=== PATIENT | female | born 1990 | race Caucasian/White ===

== ENCOUNTER 2016-10-07 21:39 | Emergency (ER) | payer OTHER ==
[~2016-10-07] VITALS: Ht 172.7 cm; Wt 67.0 kg
[2016-10-07 21:50] VITALS: TEMP 36.7; Ht 172.7 cm; Wt 67.0 kg
[2016-10-07] MEDS ORDERED: AMOXICILLIN 250 MG CAP PO ONE (22:15)
--- NOTE | 2016-10-07 22:15 | EMERGENCY ROOM VISIT NOTE ---
History Report prepared by Terell: Froilan Corcoran Under the Supervision of: Dr. Al Rey D.O. First contact with patient: 22:05 Chief Complaint: BITE Stated Complaint: TICK BITE 24 WKS PREG History of Present Illness The patient is a 26 year old female who presents to the Emergency Room with complaints of an episode of a tick bite occurring within the last 24 hours. She just noticed the bite tonight, and denies any pain or vaginal bleeding. The patient is 24 weeks and this is her first . She denies having any medical problems, and does not take any regular medications. Her PCP is Dr. Carnes. Source of History: patient Onset: this evening Position: abdomen Quality: other (tick bite) Timing: other (episode) Associated Symptoms: No abdominal pain Note: The patient denies having vaginal discharge. Review of Systems See HPI for pertinent positives & negatives. A total of 6 systems reviewed and were otherwise negative. Past Medical & Surgical Medical Problems: (1) No Known Active Medical Problems Family History Diabetes mellitus Hypertension Social History Smoking Status: Never Smoker Smokeless Tobacco Use: No Alcohol Use: none Drug Use: none Marital Status: Occupation Status: employed Current/Historical Medications Scheduled Multivit/Min/Iron/Fol Ac/Pren ( Vitamin), 1 TAB PO DAILY Allergies Coded Allergies: No Known Allergies (Unverified , 10/07/16) Physical Exam Vital Signs Date Time Temp Pulse Resp B/P Pulse Ox O2 Delivery O2 Flow Rate FiO2 10/07/16 22:40 72 18 119/74 97 Room Air 10/07/16 21:50 36.7 80 16 121/77 100 Room Air Physical Exam GENERAL: Patient is awake alert in no acute distress patient is resting comfortably and showing no signs of anxiety EYES: The conjunctivae are clear. The pupils are round and reactive. EARS, NOSE, MOUTH AND THROAT: The nose is without any evidence of any deformity. Mucous membranes are moist tongue is midline NECK: The neck is nontender and supple. RESPIRATORY: Normal respiratory effort is noted there is no evidence of wheezing rhonchi or rales CARDIOVASCULAR: Regular rate and rhythm noted there no murmurs rubs or gallops normal S1 normal S2 GASTROINTESTINAL: in appearance. No tenderness to palpation. MUSCULOSKELETAL/EXTREMITIES: There is no evidence of gross deformity full range of motion is noted in the hips and shoulders SKIN: Area on right middle quadrant of abdomen where tick bite removed with small mouth part noted. Removed with 22 gauge needle. Three times antibiotic ointment applied. NEUROLOGIC: Patient is awake alert and oriented x3 strength is symmetric patellar reflexes are 2+ bilaterally Medical Decision & Procedures Medications Administered Medications (Trade) Dose Ordered Sig/Caterina Route Start Time Stop Time Status Last Admin Dose Admin Amoxicillin (Amoxil Cap) 500 mg NOW ONCE PO 10/07/16 22:15 10/07/16 22:16 DC 10/07/16 22:20 500 MG ED Course 2205: The patient was evaluated in room C7. A complete history and physical examination were performed. 2214: Ordered Amoxicillin 500 mg PO. 2219: Upon reevaluation, the patient is doing well. I discussed the results and treatment plan with the patient. She verbalized agreement of the treatment plan. The patient was discharged home. Medical Decision Differential diagnosis: Etiologies such as contact dermatitis, viral exanthem, urticaria, allergic reaction, Francis-Gerhard syndrome, toxic epidermal necrolysis, erythema multiforme, cellulitis, scabies, HSV, varicella, zoster, eczema, staph scalded skin syndrome, fungal infection, as well as others were entertained. Nursing notes reviewed. The patient is a 26-year-old female who presented to the emergency department for a tick removal. The patient tried to remove the tick herself but left mouth parts in her abdominal wall. She is currently and was treated with amoxicillin for prophylaxis. I explained to her that normally we would use doxycycline but she is at this time. The patient was encouraged to keep an eye on this area and follow-up with her primary care physician as soon as possible. She was also encouraged to return immediately if signs of Lyme disease develop such as joint aches joint swelling or very large rash at the site of the tick bite. She was also encouraged to continue to put triple antibiotic ointment to the area 2-3 times a day. Impression Primary Impression: Tick bite Scribe Attestation The scribe's documentation has been prepared under my direction and personally reviewed by me in its entirety. I confirm that the note above accurately reflects all work, treatment, procedures, and medical decision making performed by me. Departure Information Dispostion Home / Self-Care Referrals Mary Kate Gordillo D.O. (PCP) Patient Instructions ED Bite Tick Abx Tx, ED Facts Tick, [facility] Additional Instructions Continue to put triple antibiotic ointment to the area 2-3 times a day. Follow- up with your family as soon as possible. Follow-up especially if he started to develop a red area at the tick bite site the becomes very large. Problem Qualifiers Primary Impression: Tick bite Encounter type: initial encounter Qualified Codes: W57.XXXA - Bitten or stung by nonvenomous insect and other nonvenomous arthropods, initial encounter
[2016-10-07 22:40] VITALS: BP 119/74; PULSE 72; O2SAT 97
[2016-10-07] MEDS ORDERED: PRENTAB26 PO (22:44)
[2017-01-30] MEDS ORDERED: MTR600X PO (08:54)
== END 2016-10-07 23:12 | disposition home or self-care (01) ==
LOC: C.EDB 21:40 → C.EDC 23:12
DX: S30.861A Insect bite (nonvenomous) of abdominal wall, initial encounter (principal); W57.XXXA Bitten or stung by nonvenomous insect and other nonvenomous arthropods, initial encounter; Z3A.24 24 weeks gestation of pregnancy; Z83.3 Family history of diabetes mellitus; Z82.49 Family history of ischemic heart disease and other diseases of the circulatory system

== ENCOUNTER 2017-01-28 10:53 | Inpatient (IN) | payer OTHER ==
[~2017-01-28] VITALS: Ht 172.7 cm; Wt 70.5 kg
[~2017-01-28 10:53] MED LIST: PRENTAB26 PO
[2017-01-28] MEDS ORDERED: ONDANSETRON 8 MG/54 ML D5W IV PRN (12:15)
[2017-01-28] MEDS ORDERED: ONDANSETRON INJ 8 MG in DEXTROSE 5% 50ML 50 ML IV PRN (12:15)
[2017-01-28 12:22] LABS: HEMATOCRIT 46.6 % (37-47); MEAN CELL VOLUME 92.5 fL (80-100); MEAN CORPUSCULAR HEMOGLOBIN 33.9 pg (25-34); MEAN CORPUSCULAR HGB CONC 36.7 g/dl (32-36); MEAN PLATELET VOLUME 10.7 fL (7.4-10.4); PLATELET COUNT 142 K/uL (130-400); RED BLOOD COUNT 5.04 M/uL (4.2-5.4); WHITE BLOOD COUNT 15.06 K/uL (4.8-10.8)
[2017-01-28] MEDS ORDERED: ONDANSETRON INJ 2 MG/ML 2 ML VIAL ONE (12:26)
[2017-01-28] MEDS: LACTATED RINGER'S 1000ML 1,000 ML IV SCH ×3 (12:29→14:39)
[2017-01-28] MEDS ORDERED: ONDANSETRON INJ 2 MG/ML 2 ML VIAL IV PRN (12:30)
[2017-01-28 14:06] VITALS: Ht 172.7 cm; Wt 70.5 kg
[2017-01-28] MEDS ORDERED: OXYTOCIN 30 UNITS/500ML NSS IV ONE (15:33)
[2017-01-28] MEDS ORDERED: SUPERCREAM 0.870 % 15GM JAR EXT PRN (17:15)
[2017-01-28] MEDS ORDERED: DIPHTHERIA/TETANUS/PERTUSSIS 0.5 ML SYR/VIAL IM. ONE (17:15)
[2017-01-28] MEDS ORDERED: MEASLES, MUMPS & RUBELLA VIRUS VIAL SQ. ONE (17:15)
[2017-01-28] MEDS ORDERED: HYDROCORTISONE ACETATE 25 MG SUPP PR PRN (17:15)
[2017-01-28] MEDS ORDERED: OXYTOCIN 30 UNITS/500ML NSS IV PRN (17:15)
[2017-01-28] MEDS ORDERED: OXYCODONE/ACETAMINOPHEN 5-325 TAB PO PRN (17:15)
[2017-01-28] MEDS ORDERED: BENZOCAINE 20% AER SPR 82.5 GM CAN EXT PRN (17:15)
[2017-01-28] MEDS ORDERED: ACETAMINOPHEN/CODEINE 300/30MG TAB PO PRN ×2 (17:15)
[2017-01-28] MEDS ORDERED: IBUPROFEN 600 MG TAB PO PRN (17:15)
[2017-01-28] MEDS ORDERED: LANOLIN OINT EXT PRN ×2 (17:15)
[2017-01-28] MEDS ORDERED: ACETAMINOPHEN 325 MG TAB PO PRN (17:15)
--- NOTE | 2017-01-28 17:22 | Vaginal Delivery Summary ---
Vaginal Delivery Summary Delivery Note live male over intact perineum ROSA with Apgars 9/10 weight pending. Delayed cord blood clamping followed by cord blood. Placenta delivered spontaneously and intact. 1st degree tear repaired with 1% Lidocaine and 3/0 Vicryl suture. EBL 250 ml. Final sponge, needle and instrument count are correct. Mom and baby stable.
[2017-01-28] MEDS ORDERED: LACTATED RINGER'S 1000ML 1,000 ML IV SCH (18:00)
[2017-01-28 20:00] VITALS: BP 101/65; PULSE 68; TEMP 36.8; O2SAT 99
[2017-01-29 00:20] VITALS: BP 113/78; PULSE 72; TEMP 36.7; O2SAT 100
[2017-01-29 03:40] VITALS: BP 102/67; PULSE 69; TEMP 36.7; O2SAT 99
[2017-01-29 07:20] VITALS: BP 110/74; PULSE 82; TEMP 36.4
--- NOTE | 2017-01-29 07:28 | OB/GYN Progress Note ---
PRODUCTION SCHEDULER Progress Note Date of Service Jan 29, 2017. Subjective conversation w/ patient, physical exam Ambulation: ambulating normally Voiding: no voiding problems Passing Gas: Yes Diet Tolerance: Regular Diet Lochia: Moderate Feeding Type: Breast Feeding Pain: 07/15 Notes: Doing well, no concerns. Objective Vital Signs Date Time Temp Pulse Resp B/P (MAP) Pulse Ox O2 Delivery O2 Flow Rate FiO2 01/29/17 03:40 36.7 69 16 102/67 (79) 99 Room Air 01/29/17 00:20 100 Room Air 01/29/17 00:20 36.7 72 18 113/78 (90) 100 Room Air 01/28/17 20:00 36.8 68 20 101/65 (77) 99 Room Air Physical Exam General Appearance: WELL-APPEARING Respiratory/Chest: chest non-tender, lungs clear Cardiovascular: regular rate, rhythm Abdomen: normal bowel sounds, soft Fundus: Firm Extremities: normal range of motion, non-tender, no calf tenderness Laboratory Results Last 24 Hours Test 01/28/17 11:36 01/29/17 06:40 White Blood Count 15.06 K/uL Red Blood Count 5.04 M/uL Hemoglobin 17.1 g/dL Hematocrit 46.6 % Mean Corpuscular Volume 92.5 fL Mean Corpuscular Hemoglobin 33.9 pg Mean Corpuscular Hemoglobin Concent 36.7 g/dl RDW Standard Deviation 44.0 fL RDW Coefficient of Variation 13.1 % Platelet Count 142 K/uL Mean Platelet Volume 10.7 fL Assessment and Plan Post- Day Number: 1 Continue Routine Care: -Continue routine care -Anticipate d/c home tomorrow.
[2017-01-29] MEDS: FERROUS SULFATE 325 MG TAB PO SCH (08:12)
[2017-01-29] MEDS: PRENATAL VITAMIN TAB PO SCH (08:12)
[2017-01-29 11:23] VITALS: BP 94/64; PULSE 82; TEMP 36.7; O2SAT 99
[2017-01-29 15:30] VITALS: BP 109/68; PULSE 75; TEMP 36.8
[2017-01-29] MEDS ORDERED: BISACODYL 5 MG TABEC PO SCH (20:00)
[2017-01-29 23:05] VITALS: BP 104/70; PULSE 75; TEMP 36.6; O2SAT 99
[2017-01-30] MEDS ORDERED: BISACODYL 10 MG SUPP PR PRN (07:00)
[2017-01-30] MEDS: FERROUS SULFATE 325 MG TAB PO SCH (07:53)
[2017-01-30] MEDS: PRENATAL VITAMIN TAB PO SCH (07:53)
[2017-01-30 07:55] VITALS: BP 115/74; PULSE 73; TEMP 36.6
[2017-01-30] MEDS ORDERED: MTR600X PO (08:54)
--- NOTE | 2017-01-30 08:59 | Discharge Instructions ---
Discharge Instructions Date of Service Jan 30, 2017. Admission Reason for Admission: R/O Labor Discharge Discharge Diagnosis / Problem: term delivered Discharge Goals Goal(s): Routine recovery after delivery Activity Recommendations Activity Limitations: as noted below Lifting Limitations: no more than 10 pounds Exercise/Sports Limitations: until after follow-up appointment Shower/Bathe: no limitations . Instructions / Follow-Up Instructions / Follow-Up ACTIVITY RECOMMENDATIONS: * Gradual return to full activity over the next 2-3 weeks. * No lifting - nothing heavier than baby over the next 2-3 weeks. * Do not engage in vigorous exercise, sexual activity or sports until cleared by your physician. * Do not drive or operate any motorized equipment until cleared by your physician. * You may shower/bathe daily. BREAST CARE: If you are not breast feeding: * Wear a supportive bra 24 hours a day for one to two weeks. * Avoid stimulating your breasts and nipples as much as possible during the first few weeks after delivery. * When taking a shower, have the warm water hit your back, not breasts. * When your breasts feel full, apply ice packs. Usually three to four times a day helps ease the discomfort. * Take a mild pain medication (Tylenol/Motrin) when you are uncomfortable. If breast feeding: * Use breast milk to lubricate nipples. Lansinoh cream may be used for sore nipples. You do not need to remove cream prior to breast feeding. If using a different brand of cream, check the label for directions regarding removal of cream prior to nursing. * Wear a supportive bra. * If having problems with breasts or breast feeding, call a senior recruitment consultant or your health care provider. EPISIOTOMY CARE: After delivery, if you have an episiotomy (stitches), the following steps will ease discomfort and aid healing. * For the first 24 hours after delivery, place ice packs next to your episiotomy to help reduce swelling. * After the first 24 hour-period, sitz baths, either portable or in the tub, are suggested. A shower with a shower arm sprayed over the episiotomy may be comforting. * Sofia care should be done after each voiding and bowel movement. Squirt warm water from a plastic bottle over the perineum (region of the body between the anus and urinary opening) and pat dry. * Use Dermoplast to ease discomfort. Shake container. [place] directly over the episiotomy. * Place a Tucks on a clean sanitary pad next to your episiotomy. OVER THE COUNTER MEDICATION: * For discomfort or pain, you may use Acetaminophen (Tylenol), Ibuprofen (Advil ), or Naproxen (Aleve) following the package directions. * For constipation you may use Colace following the package directions. SPECIAL CARE INSTRUCTIONS: When you are discharged from the hospital, it is important for you to follow the instructions listed below: * During the first week at home, you should be able to care for yourself and your baby. In addition, the usual light household activities are encouraged. * Limit your activities to the way you feel. Do not try to clean the house or move furniture. Be sensible. * If you actively engage in sports and have done so up until the time of your delivery, you may resume these activities as soon as you feel able. This may take up to one month or even longer. Use good judgment. * Continue to take your vitamins for at least six weeks after the of your baby. * Your diet need not be limited unless you were on a special diet before your delivery. Breast-feeding mothers need around 2500 calories per day and at least 64-80 ounces of fluid per day (8 to 10 glasses). * You should eat foods from the four major food groups. Crash diets or fad diets are to be avoided. Eating lean meats, fresh fruits and vegetables, low-fat dairy products, high fiber foods and a regular exercise program, will help you get back to your pre- weight without putting your health at risk. * Constipation is sometimes a problem after delivery. Take a mild laxative as needed. If breast feeding, Milk of Magnesia is acceptable to use. You may use a suppository or Fleets enema if no episiotomy. * A daily shower or tub bath is suggested. Be sure to thoroughly and gently dry the perineum. * A bloody vaginal discharge will usually continue until around four weeks post . A small amount of bleeding may continue for as long as six weeks. Vaginal discharge changes from the bright red bleeding after delivery to pink then brownish and finally yellowish-pink before becoming white and disappearing. * Bleeding may increase with activity. Your first period may come in 4-8 weeks. If you are breast feeding, your period may be delayed even longer. * [place] (sex) can begin whenever both you and your partner feel comfortable and do not have any form of genital infection. It is recommended that you wait until after your return appointment and discuss with your physician. If you have questions, please talk to your health care practitioner. A condom should be used to prevent infection and . * Foreplay, gentle intercourse and lubrication is very important the first several times to prevent pain. A water-based lubricant such as K-Y jelly or Astroglide may be used. * Tampons may be used six weeks after delivery. * Douching should be avoided for 6 weeks after delivery. * If you have RH negative blood and your baby is RH positive, you will receive RHOGAM by injection prior to discharge. The nurse will give you a card to keep with you that has the date and place that you received RHOGAM after delivery. * During your care, you had a Rubella screen done to check for the presence of rubella antibodies in your blood. If your test was negative, you will receive a Rubella vaccine prior to discharge. This vaccine may cause a fever, soreness at the injection site and flu-like symptoms. If these symptoms persist, notify your health care practitioner. is not advised for three months after a Rubella vaccine. There is a higher chance of having a baby with defects if conceived within three months of getting the vaccine. * If you were discharged 24 hours from delivery or before 48 hours: Visiting nurses will come to your home 48 hours after discharge to assess you and your baby. The visiting nurse will meet with you while you are in the hospital to arrange a time and get directions to your home. * Verbalizes understanding of car seat law as reviewed with patient nursing. * Car Seat hand-out given and reviewed with patient by nursing. * Shaken baby information reviewed with patient by nursing. Call you doctor if: * Heavy bleeding (saturating several pads an hour) or passing clots the size of your fist. * A fever >101 degrees F (38.3 degrees C) on two occasions four hours apart and/or chills. * Unusual pain in the pelvic or vaginal areas. * "Baby Blues" lasting longer than two weeks. If you have any questions or concerns, call your health care practitioner at . FOLLOW-UP VISIT: * Please call the office at to schedule a 6 week examination. It is important you keep this appointment. * It is important for you to make arrangements for either yearly or twice yearly check-ups thereafter. Current Hospital Diet Patient's current hospital diet: Regular OB Diet Discharge Diet Recommended Diet: Regular OB Diet Pending Studies Studies pending at discharge: no Medical Emergencies . Who to Call and When: Medical Emergencies: If at any time you feel your situation is an emergency, please call 911 immediately. . Non-Emergent Contact Non-Emergency issues call your: Primary Care Provider . . "Provider Documentation" section prepared by Shelton Smith. . VTE Core Measure Inpt VTE Proph given/why not?: Treatment not indicated
--- NOTE | 2017-01-30 09:01 | OB/GYN Progress Note ---
SERVICE CONSULTANT Progress Note Date of Service Jan 30, 2017. Subjective conversation w/ patient, physical exam Ambulation: ambulating normally Voiding: no voiding problems Passing Gas: Yes Diet Tolerance: Regular Diet Lochia: Small Feeding Type: Breast Feeding Objective Vital Signs Date Time Temp Pulse Resp B/P (MAP) Pulse Ox O2 Delivery O2 Flow Rate FiO2 01/30/17 07:55 Room Air 01/30/17 07:55 36.6 73 18 115/74 (88) Room Air 01/29/17 23:05 99 Room Air 01/29/17 23:05 36.6 75 16 104/70 (81) 99 Room Air 01/29/17 15:30 36.8 75 18 109/68 (82) Room Air 01/29/17 15:30 Room Air 01/29/17 11:23 36.7 82 20 94/64 (74) 99 Room Air Physical Exam General Appearance: WELL-APPEARING, NO APPARENT DISTRESS Abdomen: non tender, soft Fundus: Firm Extremities: non-tender, normal inspection, no pedal edema Assessment and Plan Post- Day Number: 1 Continue Routine Care: discharged
[2017-01-30 11:30] VITALS: BP_DIAS 74; PULSE 73; TEMP 36.6
== END 2017-01-30 12:15 | disposition home or self-care (01) | DRG 775 ==
LOC: C.OPB 10:53 → C.OBG 10:53 → C.OPB 11:05 → C.LD 11:53 → C.OBG 19:09
PROVIDERS: ADMIT Obstetrics & Gynecology; ATTEND Obstetrics & Gynecology
PROC: 10E0XZZ Delivery of Products of Conception, External Approach (ICD-10-PCS; principal; 2017-01-28)
PROC: 0HQ9XZZ Repair Perineum Skin, External Approach (ICD-10-PCS; principal; 2017-01-28)
DX: O48.0 Post-term pregnancy (principal); O70.0 First degree perineal laceration during delivery; Z37.0 Single live birth; Z3A.40 40 weeks gestation of pregnancy

== ENCOUNTER 2019-08-04 00:30 | Inpatient (IN) ==
[2019-08-04] MEDS ORDERED: OXYTOCIN 30 UNITS/500 ML BAG IV PRN ×3 (01:13→10:11)
[2019-08-04] MEDS: LACTATED RINGER'S 1,000 ML IV PRN ×2 (01:35→06:37)
[2019-08-04 01:46] LABS: Hematocrit (blood only) 34.3 % (37-47); Hemoglobin 11.5 g/dL (12.0-16.0); Mean Corpuscular Hemoglobin 29.6 pg (25-34); Mean Corpuscular Volume 88.2 fL (80-100); Mean Platelet Volume 10.7 fL (7.4-10.4); Platelet Count 137 K/uL (130-400); RDW Coefficient of Variation 14.1 % (11.5-14.5); RDW Standard Deviation 45.4 fL (36.4-46.3); Red Blood Count 3.89 M/uL (4.2-5.4); White Blood Count 9.33 K/uL (4.8-10.8)
[2019-08-04 01:47] LABS: Mean Corpuscular Hgb Conc 33.5 g/dL (32-36)
--- NOTE | 2019-08-04 08:11 | Obstetrical Progress Note ---
Date of Service August 04, 2019 Physical Exam Genitourinary: OB Exam Abdomen: + regular contractions Manual OB Exam: + cervical dilation 8 cm, + cervical effacement 100% and + station -1 OB Exam Monitor Tracing: + external FHT monitor used, + external uterine monitor used, + category I and + normal FHT variability Results & Data Vital Signs (Past 12 Hours) Vital Signs Temp Pulse Resp BP 08/04/19 08:05 68 155/81 H 08/04/19 07:16 36.6 C 74 20 167/91 H 08/04/19 06:13 36.7 C 66 18 138/88 08/04/19 05:15 65 18 129/77 08/04/19 04:16 36.6 C 65 18 127/86 08/04/19 02:35 36.5 C 08/04/19 00:51 36.6 C 72 16 134/75 08/04/19 00:42 72 134/75
--- NOTE | 2019-08-04 09:10 | Delivery Summary ---
Vaginal Delivery Summary Date of Service August 04, 2019 Vaginal Delivery Summary Delivery note live female ROSA over intact perineum with delayed cord clamping and Apgars 8/10 weight pending. Cord blood obtained followed by spontaneous delivery of intact placenta. No tears. EBL 200 ml. Final sponge and instrument count are correct. Mom and baby stable.
[2019-08-04] MEDS ORDERED: DIPHTHERIA/TETANUS/PERTUSSIS 0.5 ML SYR/VIAL IM ONE (10:11)
[2019-08-04] MEDS ORDERED: SUPERCREAM 0.870% 15 GM JAR EXT PRN (10:11)
[2019-08-04] MEDS ORDERED: ACETAMINOPHEN 325 MG TAB PO PRN (10:11)
[2019-08-04] MEDS ORDERED: HYDROCORTISONE ACETATE 25 MG SUPP PR PRN (10:11)
[2019-08-04] MEDS ORDERED: bisacodyL 10 MG SUPP PR PRN (10:11)
[2019-08-04] MEDS ORDERED: IBUPROFEN 600 MG TAB PO PRN (10:11)
[2019-08-04] MEDS ORDERED: BENZOCAINE 20% AER SPR 82.5 GM CAN EXT PRN (10:11)
[2019-08-04] MEDS: DOCUSATE SODIUM 100 MG CAP PO SCH (21:00)
[2019-08-05 07:11] LABS: Hematocrit (blood only) 31.7 % (37-47); Hemoglobin 10.7 g/dL (12.0-16.0); Mean Corpuscular Hemoglobin 30.1 pg (25-34); Mean Corpuscular Hgb Conc 33.8 g/dL (32-36); Mean Platelet Volume 10.8 fL (7.4-10.4); Platelet Count 136 K/uL (130-400); RDW Coefficient of Variation 14.3 % (11.5-14.5); RDW Standard Deviation 46.1 fL (36.4-46.3); Red Blood Count 3.56 M/uL (4.2-5.4); White Blood Count 11.65 K/uL (4.8-10.8)
[2019-08-05] MEDS ORDERED: PRENATAL VITAMIN 1 TAB PO SCH (08:00)
[2019-08-05] MEDS: DOCUSATE SODIUM 100 MG CAP PO SCH (08:01)
--- NOTE | 2019-08-05 08:27 | Obstetrical Progress Note ---
Date of Service August 05, 2019 Subjective Patient is seen and examined. She feels well, no complaints. Likes to be discharged Ambulating without dizziness Voiding without difficulty Tolerating regular diet with out N&V Bleeding is minimal No fever/ chills/ CP/ SOB/ N&V/ Leg pain Breast feeding without problems Vital Signs Temp Pulse Resp BP Pulse Ox 08/05/19 08:00 36.6 C 79 18 121/82 99 08/05/19 05:15 36.7 C 76 16 113/68 08/05/19 00:05 36.8 C 61 16 116/75 Lab Results 08/04/19 08/05/19 Range/Units 01: 06:52 WBC 9.33 11.65 H (4.8-10.8) K/uL RBC 3.89 L 3.56 L (4.2-5.4) M/uL Hgb 11.5 L 10.7 L (12.0-16.0) g/dL Hct 34.3 L 31.7 L (37-47) % MCV 88.2 89.0 (80-100) fL MCH 29.6 30.1 (25-34) pg MCHC 33.5 33.8 (32-36) g/dL RDW Std Deviation 45.4 46.1 (36.4-46.3) fL RDW Coeff of Shahriar 14.1 14.3 (11.5-14.5) % Plt Count 137 136 (130-400) K/uL MPV 10.7 H 10.8 H (7.4-10.4) fL PE: General: Alert, orientedx3, NAD Abd: soft, NT, fundus firm, below Umbilicus Perineum intact, Lochia rubra minimal Ext; NT, no edema AP: 29 yo s/p , ppd# 1 VSS Afebrile doing well Continue routine care All questions were answered Discussed when to call D/C home , f/u in office Results & Data Vital Signs (Past 12 Hours) Vital Signs Temp Pulse Resp BP Pulse Ox 08/05/19 08:00 36.6 C 79 18 121/82 99 08/05/19 05:15 36.7 C 76 16 113/68 08/05/19 00:05 36.8 C 61 16 116/75
[2019-08-05] MEDS ORDERED: NON-FORMULARY MEDICATION (Pnv Cmb#95-Ferrous Fumarate-Fa [Prenatal] 1 TAB) PO SCH (09:00)
[2019-08-05] MEDS ORDERED: bisacodyL 5 MG TABEC PO SCH (20:00)
== END 2019-08-05 13:10 | disposition home or self-care (01) | DRG 807 ==
LOC: 4S1 00:30 → 4S2 12:51